=== PATIENT | female | born 1980 | race Caucasian/White ===

== ENCOUNTER 2018-03-23 11:03 | Emergency (ER) | payer MEDICAID, OTHER ==
[~2018-03-23] VITALS: Ht 172.7 cm; Wt 70.1 kg
[2018-03-23] MEDS ORDERED: LIDOCAINE-MPF 1%, 5ML INFIL ONE (11:30)
[2018-03-23] MEDS ORDERED: SODIUM CHLORIDE 0.9% 1,000ML IVBOLUS ONE (11:30)
[2018-03-23] MEDS ORDERED: SODIUM CHLORIDE FLUSH 10ML SYR IVF ONE (11:30)
[2018-03-23] MEDS ORDERED: CLINDAMYCIN PMX 900MG/50ML 50 ML IVPB ONE (11:30)
[2018-03-23] MEDS ORDERED: LIDOCAINE-MPF 2% ,5ML ONE (12:01)
[2018-03-23] MEDS ORDERED: CLINDAMYCIN PMX 900MG/50ML 50 ML ONE (12:01)
[2018-03-23 12:04] LABS: BASOPHILS # (AUTO) 0.06 x10^3/uL (0-0.1); BASOPHILS % (AUTO) 0 % (0-1); EOSINOPHILS # (AUTO) 0.11 x10^3/uL (0-0.4); EOSINOPHILS % (AUTO) 1 % (1-7); LYMPHOCYTES # (AUTO) 2.27 x10^3/uL (1-3.4); LYMPHOCYTES % (AUTO) 16 % (22-44); MD NO; MEAN CORPUSCULAR HEMOGLOBIN 29.5 pg (27.0-34.8); MEAN CORPUSCULAR HGB CONC 33.4 g/dL (32.4-35.8); MEAN CORPUSCULAR VOLUME 88.3 fL (80-100); MEAN PLATELET VOLUME 7.2 fL (7.4-10.4); MONOCYTES # (AUTO) 0.78 x10^3/uL (0.2-0.8); MONOCYTES % (AUTO) 5 % (2-9); NEUTROPHILS # (AUTO) 11.36 x10^3/uL (1.8-6.8); NEUTROPHILS % (AUTO) 78 % (42-75); PLATELET COUNT 532 x10^3/uL (130-400); RED BLOOD COUNT 4.73 x10^6/uL (3.82-5.3); RED CELL DISTRIBUTION WIDTH 13.8 % (9.6-15.2)
[2018-03-23 12:15] LABS: ALANINE AMINOTRANSFERASE 56 U/L (12-78); ALBUMIN 3.5 g/dL (3.4-5.0); ANION GAP 6 mmol/L (5-15); CHLORIDE 106 mmol/L (98-107); CREATININE 0.84 mg/dL (0.55-1.02)
[2018-03-23 12:17] LABS: ALKALINE PHOSPHATASE 374 U/L (45-117); BILIRUBIN,TOTAL 0.3 mg/dL (0.2-1.0); TOTAL PROTEIN 8.7 g/dL (6.4-8.2)
[2018-03-23] MEDS ORDERED: CLINDAMYCIN 150 MG/ML, 6ML IM ONE ×2 (13:30→14:30)
[2018-03-23] MEDS ORDERED: CLINDAMYCIN 150 MG/ML, 6ML ONE (14:07)
[2018-03-23 14:53] VITALS: BP 140/87
== END 2018-03-23 14:53 | disposition home or self-care (01) ==
LOC: ED 11:32
DX: L02.512 Cutaneous abscess of left hand (principal)
CPT/HCPCS: 10060; 36415; 73130; 80053; 83605; 84145; 85025; 87040; 96372; 99285; S0077

== ENCOUNTER 2019-05-25 13:56 | Emergency (ER) | payer MEDICAID ==
[~2019-05-25] VITALS: Ht 170.2 cm; Wt 61.0 kg
[2019-05-25 14:09] VITALS: BP 124/74
--- NOTE | 2019-05-25 15:06 | NUR ---
Patient/Caregiver given discharge instructions and they have confirmed that they understand the instructions. Patient ambulatory with steady gait.
== END 2019-05-25 15:09 | disposition home or self-care (01) ==
LOC: ED 14:30
DX: J06.9 Acute upper respiratory infection, unspecified (principal); J20.9 Acute bronchitis, unspecified; H10.233 Serous conjunctivitis, except viral, bilateral
CPT/HCPCS: 71046; 99283